=== PATIENT | female | born 1955 | race Caucasian/White ===

== ENCOUNTER 2020-04-14 10:05 | Outpatient (CLI) | payer OTHER, SELFPAY ==
--- NOTE | ~2020-04-14 | NM_ITS ---
EXAMINATION: NM bone scan whole body DATE: 04/14/2020 14:25 INDICATION: Elevated alkaline phosphatase level TECHNIQUE: 19 mCi Tc-99m HDP was administered intravenously. Delayed whole-body scintigrams were obt ained. COMPARISON: There are no relevant imaging studies at our institution. FINDINGS: Scattered likely degenerative joint centered uptake with typical distribution seen at the cervical sp ine, bilateral elbows and at multiple joints in the bilateral hands, feet and ankles. Tiny focus of l ikely enthesopathic uptake at the right patella. No other atypical foci of abnormal bone uptake to zavaleta ggest metastatic disease. IMPRESSION: 1. No evident osseous metastatic disease. Reviewed, dictated and finalized at location A.
== END 2020-04-14 10:06 | disposition home or self-care (01) ==
PROVIDERS: PCP Family Medicine; Visit Provider Family Medicine
DX: R74.8 Abnormal levels of other serum enzymes (principal)
CPT/HCPCS: 78306; A9561

== ENCOUNTER 2022-09-06 07:26 | Outpatient (CLI) | payer OTHER, SELFPAY | END 2022-09-06 07:27 | disposition home or self-care (01) | LOC: CHSLAB 07:28 | PROVIDERS: PCP Family Medicine; Visit Provider Family Medicine | DX: R19.7 Diarrhea, unspecified (principal) | CPT/HCPCS: 87045; 87177; 87209; 87324; 87427 ==

== ENCOUNTER 2022-12-04 16:23 | Emergency (ER) | payer OTHER, SELFPAY ==
[2022-12-04] VITALS (15 sets, daily range): BP systolic 130–166; BP diastolic 82–95; PULSE 70–89; RESP 11–28; TEMP 36.3–36.6; O2SAT 95–100
--- NOTE | ~2022-12-04 | CT_ITS ---
EXAMINATION: CT brain wo con DATE: 12/04/2022 16:41 INDICATION: Acute left arm numbness. TECHNIQUE: Computed tomography (CT) of the head was performed without intravenous contrast. The mA wa s adjusted according to patient size. Iterative reconstruction technique was employed. The dose-lengt h product was 681.00 mGy-cm. COMPARISON: None FINDINGS: There are scattered areas of low attenuation in the cerebral white matter. There is no intr acranial hemorrhage, acute infarction, or abnormal intracranial mass lesion. The ventricles are efrain l in size. There is mucosal thickening in the paranasal sinuses. The orbits are normal. The mastoid a ir cells are normal. IMPRESSION: 1. Mild nonspecific cerebral white matter disease, which likely represents chronic small vessel ische jean disease. Reviewed, dictated and finalized at location A. IMPRESSION: 1. Mild nonspecific cerebral white matter disease, which likely represents children's lunchroom supervisor nate small vessel ischemic disease.
--- NOTE | ~2022-12-04 | XR_ITS ---
EXAMINATION: XR chest 1V portable INDICATION: Left arm numbness TECHNIQUE: Portable AP chest at 1716 hours COMPARISON: 06/03/2019 FINDINGS: The lungs are free of acute opacities. No pleural effusion or pneumothorax. There is a larg e hiatal hernia. The heart size is normal. Surgical clips in the right upper quadrant are likely from prior cholecystectomy. IMPRESSION: 1. Large hiatal hernia. Reviewed, dictated and finalized at location F. IMPRESSION: 1. Large hiatal hernia.
--- NOTE | ~2022-12-04 | CT_ITS ---
EXAMINATION: CTA chest PE protocol DATE: 12/04/2022 18:44 INDICATION: Left arm numbness and nausea TECHNIQUE: Computed tomography angiography (CTA) of the chest was performed with 100 mL Omnipaque-350 intravenous contrast timed to evaluate the pulmonary arteries. Coronal maximum intensity projection 3D-reconstructions were created by the technologist. The dose-length product (DLP) was 519.74 mGy-cm. Automated exposure control and iterative reconstruction technique were employed. COMPARISON: 05/15/2007 FINDINGS: The pulmonary arteries are well-opacified. No pulmonary embolism is identified. Respiratory motion artifact limits evaluation for pulmonary emboli in the lung bases. There is a small sliding h iatal hernia. No pathologically enlarged thoracic lymph nodes are identified. The heart size is efrain l. There is mild dependent atelectasis. No pleural effusion or pneumothorax. The gallbladder is surgi danay absent. There is moderate thoracic spondylosis. IMPRESSION: 1. No pulmonary embolism or acute cardiopulmonary abnormality identified. Reviewed, dictated and finalized at location F.
--- NOTE | 2022-12-04 16:26 | ED.NEUROSD ---
HPI - Neuro Symptoms/Deficit General Chief Complaint: Extremity Injury, Upper Stated Complaint: left arm weakness and numbness Time Seen by Provider: 12/04/22 16:26 Source: patient Mode of arrival: EMS Limitations: no limitations History of Present Illness HPI Narrative: 67-year-old female, smoker with a history of hypertension, status post back surgery, anxiety/depression, Negative stress test 3-4 years ago, was brought in by EMS with -- increased anxiety over the past few days -- numbness over the left arm starting in the shoulder and extending to the elbow. No other focal neuro deficits. her symptoms started at 2:00 p.m.. blood sugar was noted to be 94. NIH stroke scale score 0 -- headache -- diaphoresis Onset (ago): hour(s) ( 4 hours ago) Last Observed Normal: 14:00 Timing confirmed by: family member History of same: No Severity: mild Quality: weak Relieving factors: none Exacerbating factors: none Context: gradual onset On Anticoagulants: No Associated symptoms: diaphoresis and headaches Treatments Prior to Arrival: none Related Data Home Medications Medication Instructions Recorded Confirmed atenolol 50 mg tablet 50 mg PO DAILY 12/04/22 12/04/22 levothyroxine 50 mcg tablet 50 mcg PO DAILY 12/04/22 12/04/22 lumateperone 10.5 mg capsule 10.5 mg PO QHS 12/04/22 12/04/22 (Caplyta) pitavastatin calcium 4 mg tablet 4 mg PO DAILY 12/04/22 12/04/22 (Livalo) Allergies Allergy/AdvReac Type Severity Reaction Status Date / Time hydrocodone Allergy Unknown nightmares Verified 12/04/22 16:49 simvastatin Allergy Unknown muscle Verified 12/04/22 16:49 ache, nausea venlafaxine Allergy Unknown irritable Verified 12/04/22 16:49 vilazodone [Viibryd] Allergy Unknown palpitation Verified 12/04/22 16:49 s Review of Systems Review of Systems: All systems reviewed & are unremarkable except as noted in HPI and below Constitutional: Constitutional: Reports as per HPI and Reports no additional constitutional complaints Eyes: Eyes: Reports as per HPI and Reports no additional eye complaints ENT: Reports system reviewed and no additional complaints, except as documented and Reports as per HPI Cardiovascular: Cardiovascular: Reports as per HPI and Reports no additional cardiovascular complaints Respiratory: Respiratory: Reports as per HPI, Reports no additional respiratory complaints and Reports dyspnea Gastrointestinal: Gastrointestinal: Reports as per HPI and Reports no additional gastrointestinal complaints Genitourinary: Genitourinary: Reports no additional female genitourinary complaints and Reports as per HPI Musculoskeletal: Musculoskeletal: Reports no additional musculoskeletal complaints and Reports as per HPI Integumentary/Breasts: Skin/Breast: Reports system reviewed and no additional complaints, except as docu and Reports as per HPI Neurologic: Reports system reviewed and no additional complaints, except as documented, Reports as per HPI, Reports headache(s) and Reports numbness Psychiatric: Psychiatric: Reports no additional psychiatric complaints, Reports as per HPI, Reports anxiety and Reports depression Endocrine: Endocrine: Reports no additional endocrine complaints and Reports excessive sweating Hematologic/Lymphatic: Hematologic/Lymphatic: Reports no additional hematologic/lymphatic complaints and Reports as per HPI Allergic/Immunologic: Allergic/Immunologic: Reports no additional allergic/immunologic complaints and Reports as per HPI PMFSH Past Medical History Medical History (Updated 12/04/22 @ 19:24 by Konrad Dietrich MD) Anxiety and depression Dyslipidemia Hypertension Surgical History Surgical History (Updated 12/04/22 @ 16:55 by Konrad Dietrich MD) Previous back surgery Social History Social History (Updated 12/04/22 @ 16:56 by Konrad Dietrich MD) Social History: smoker Alcohol intake: never Exam Narrative: hypertensive with a blood pre
--- NOTE | 2022-12-04 16:31 | ECG_ITS ---
Measurements Intervals [place] Rate: 68 P: 66 ID: [id number] QRS: 35 QRSD: 94 T: 59 QT: 395 QTc: 422 Interpretive Statements SINUS RHYTHM WITH SINUS ARRHYTHMIA NORMAL ECG NO PREVIOUS ECG AVAILABLE FOR COMPARISON Electronically Signed On 12-04-2022 21:08:37 CDT by Juni Pardo D.O.
[2022-12-04 16:35] LABS: Glucose Point of Care 94 mg/dl (65-105)
[2022-12-04] MEDS: MIDAZOLAM HCL (*CRX) 2 MG/2 ML VIAL 1 MG IV PUSH (16:50)
[2022-12-04] MEDS: ASPIRIN 81 MG CHEWABLE TABLET 324 MG PO (16:51)
[2022-12-04 17:00] LABS: Basophils Absolute Auto 0.04 K/mm3 (0.00-0.10); Basophils Percent Auto 0.5 % (0.0-1.0); Eosinophils Percent Auto 1.3 % (1.0-6.0); Hematocrit 37.8 % (35.0-42.0); Hemoglobin 12.8 g/dL (11.7-13.8); Immature Granulocyte Absolute 0.02 K/mm3 (0.00-0.00); Immature Granulocyte Percent A 0.3 % (0.0-0.0); Lymphocytes Absolute Auto 1.55 K/mm3 (1.10-4.50); Lymphocytes Percent Auto 20.7 % (18.0-42.0); Mean Corpuscular HGB Conc 33.9 g/dL (32.0-36.0); Mean Corpuscular Hemoglobin 29.7 pg (27.0-31.0); Mean Corpuscular Volume 87.7 fL (78.0-102.0); Mean Platelet Volume 11.4 fl (9.2-11.8); Monocytes Absolute Auto 0.39 K/mm3 (0.10-0.90); Monocytes Percent Auto 5.2 % (2.0-11.0); Neutrophils Absolute Auto 5.4 K/mm3 (1.7-7.2); Platelet Count Result 252 K/mm3 (150-420); Red Blood Count 4.31 M/mm3 (4.20-5.40); White Blood Count 7.5 K/mm3 (4.8-10.8)
[2022-12-04 17:13] LABS: D Dimer 0.84 mg/L (0.19-0.50); INR 0.9; Partial Thromboplastin Time 27.6 SEC (23.90-30.70); Prothrombin Time 10.4 Seconds (9.50-12.10)
[2022-12-04 17:24] LABS: Alanine Aminotransferase 41 U/L (14-59); Albumin Level 3.4 g/dL (3.4-5.0); Alkaline Phosphatase 122 U/L (46-116); Anion Gap 12 mmol/L (8-16); Aspartate Amino Transferase 22 U/L (15-37); Bilirubin,Total 0.2 mg/dL (0.00-1.00); Blood Urea Nitrogen 27 mg/dL (7-18); Calcium 9.3 mg/dL (8.5-10.1); Carbon Dioxide 27 mmol/L (21-32); Chloride 105 mmol/L (98-108); Estimated CRCL calculation 67 ml/min; Estimated Glomerular Filt Rate > 60; Glucose 100 mg/dL (70-99); NT Pro B Type Natriuretic Pept 187 pg/mL (0-125); Osmolality Calculated 303 mOsm/kg (285-295); Sodium 144 mmol/L (136-145); Troponin I 6.9 ng/L (0.00-60.4)
[2022-12-04] MEDS: LACTATED RINGERS 500 ML 999 ML IV CONT (18:42)
== END 2022-12-04 19:39 | disposition home or self-care (01) ==
PROVIDERS: Emergency Provider Internal Medicine Critical Care Medicine; PCP Family Medicine
DX: F41.0 Panic disorder [episodic paroxysmal anxiety] (principal); J44.9 Chronic obstructive pulmonary disease, unspecified; R06.00 Dyspnea, unspecified; I10 Essential (primary) hypertension; E78.5 Hyperlipidemia, unspecified; F41.8 Other specified anxiety disorders
CPT/HCPCS: 36415; 70450; 71045; 71275; 80053; 82948; 83880; 84484; 85025; 85380; 85610; 85730; 93005; 96361; 96374; 99284; A9270; J2250; J7120; Q9967

== ENCOUNTER 2023-08-15 19:17 | Emergency (ER) | payer OTHER, SELFPAY ==
--- NOTE | ~2023-08-15 | CT_ITS ---
EXAMINATION: CTA chest PE protocol DATE: 08/15/2023 20:55 INDICATION: Left chest pain. TECHNIQUE: Computed tomography angiography (CTA) of the chest was performed with 100 mL Omnipaque-350 intravenous contrast timed to evaluate the pulmonary arteries. Coronal maximum intensity projection 3D-reconstructions were created by the technologist. Automated exposure control and iterative reconst ruction technique were employed. The dose-length product was 285.45 mGy-cm. COMPARISON: Chest CT 12/04/2022 FINDINGS: The lungs demonstrate mild atelectasis. No pleural effusion. The heart size is normal. No p ericardial effusion. There is no pulmonary embolus. There are changes of cholecystectomy. There is se carlitos thoracic and cervical spondylosis. IMPRESSION: 1. No pulmonary embolus. Reviewed, dictated and finalized at location E. LIEUTENANT IMPRESSION: 1. No pulmonary embolus.
--- NOTE | ~2023-08-15 | XR_ITS ---
EXAMINATION: XR chest 1V portable DATE: 08/15/2023 19:40 INDICATION: Chest pain. TECHNIQUE: A single frontal view of the chest was obtained. COMPARISON: Chest single view 12/04/2022 FINDINGS: There is no pneumonia, pleural effusion, or pneumothorax. The heart size is normal. IMPRESSION: 1. No acute cardiopulmonary disease. Reviewed, dictated and finalized at location E. ORATION GEOLOGIST
--- NOTE | 2023-08-15 19:20 | ECG_ITS ---
Measurements Intervals [place] Rate: 72 P: 56 FL: 188 QRS: 7 QRSD: 84 T: 36 QT: 399 QTc: 437 Interpretive Statements SINUS RHYTHM VOLTAGE CRITERIA FOR LVH, CONSIDER NORMAL VARIANT Electronically Signed On 08-16-2023 13:05:11 [employer] OPERATOR HELPER by Landen Riley M.D.
[2023-08-15 19:35] VITALS: BP 137/82; PULSE 72; RESP 20; TEMP 37; O2SAT 97
--- NOTE | 2023-08-15 19:35 | ED.CHESTPAIN ---
HPI - Chest Pain General Chief Complaint: Chest Pain <Aurelio Bowens MD - Last Filed: 08/15/23 19:44> Stated Complaint: shoulder blade pain <Aurelio Bowens MD - Last Filed: 08/15/23 19:44> Time Seen by Provider: 08/15/23 19:20 <Aurelio Bowens MD - Last Filed: 08/15/23 19:44> Source: patient <Aurelio Bowens MD - Last Filed: 08/15/23 19:44> Mode of arrival: ambulatory <Aurelio Bowens MD - Last Filed: 08/15/23 19:44> Limitations: no limitations <Aurelio Bowens MD - Last Filed: 08/15/23 19:44> History of Present Illness HPI narrative: patient is a 68-year-old female with a significant past medical history that presents today with chest pain and shoulder blade pain. Patient states that she has shortness of breath and chest pain for the last 4 days. She states that it got worse today and she does have a history of panic attacks. She also has a psych history as well. She states the pain she feels all with the place but does have chest pain and pain between shoulder blades. EMS brought her here and she was given aspirin Zofran. She denies any fevers or other systemic symptoms. She is 89 questions well because she states she is in so much pain. There is no known cardiac history. <Aurelio Bowens MD - Last Filed: 08/15/23 19:44> MD complaint: chest pain <Aurelio Bowens MD - Last Filed: 08/15/23 19:44> Pertinent past history: coronary artery disease <Aurelio Bowens MD - Last Filed: 08/15/23 19:44> Onset (ago): day(s) <Aurelio Bowens MD - Last Filed: 08/15/23 19:44> Timing of current episode: constant <Aurelio Bowens MD - Last Filed: 08/15/23 19:44> Prior episodes: Yes <Aurelio Bowens MD - Last Filed: 08/15/23 19:44> Onset: during rest and during exertion <Aurelio Bowens MD - Last Filed: 08/15/23 19:44> Pain location: substernal <Aurelio Bowens MD - Last Filed: 08/15/23 19:44> Pain radiation: back <Aurelio Bowens MD - Last Filed: 08/15/23 19:44> Severity: moderate <Aurelio Bowens MD - Last Filed: 08/15/23 19:44> Pain scale (0-10): 7 <Aurelio Bowens MD - Last Filed: 08/15/23 19:44> Quality: tightness <Aurelio Bowens MD - Last Filed: 08/15/23 19:44> Relieving factors: nothing <Aurelio Bowens MD - Last Filed: 08/15/23 19:44> Exacerbating factors: nothing <Aurelio Bowens MD - Last Filed: 08/15/23 19:44> Associated symptoms: diaphoresis and dyspnea <Aurelio Bowens MD - Last Filed: 08/15/23 19:44> Treatment prior to arrival: aspirin and nitroglycerin <Aurelio Bowens MD - Last Filed: 08/15/23 19:44> Risk Factors Coronary artery disease risk factors: none <Aurelio Bowens MD - Last Filed: 08/15/23 19:44> Thoracic aortic dissection risk factors: none <Aurelio Bowens MD - Last Filed: 08/15/23 19:44> Related Data Home Medications: Home Medications Medication Instructions Recorded Confirmed atenolol 50 mg tablet 50 mg PO DAILY 12/04/22 12/04/22 levothyroxine 50 mcg tablet 50 mcg PO DAILY 12/04/22 12/04/22 lumateperone 10.5 mg capsule 10.5 mg PO QHS 12/04/22 12/04/22 (Caplyta) pitavastatin calcium 4 mg tablet 4 mg PO DAILY 12/04/22 12/04/22 (Livalo) <Aurelio Bowens MD - Last Filed: 08/15/23 19:44> Allergies/Adverse Reactions: Allergies Allergy/AdvReac Type Severity Reaction Status Date / Time hydrocodone Allergy Unknown nightmares Verified 08/15/23 19:48 simvastatin Allergy Unknown muscle Verified 08/15/23 19:48 ache, nausea venlafaxine Allergy Unknown irritable Verified 08/15/23 19:48 vilazodone [Viibryd] Allergy Unknown palpitation Verified 08/15/23 19:48 s <Aurelio Bowens MD - Last Filed: 08/15/23 19:44> Review of Systems Review of Systems: All systems reviewed & are unremarkable except as noted in HPI and below <Aurelio Bowens MD - Last Filed: 08/15/23 19:44> Constitutional: Constituti
[2023-08-15] MEDS: MORPHINE SULFATE (*CRX) 2 MG/ML INJ IV PUSH (19:36)
[2023-08-15] MEDS: LORazepam INJ (*CRX) 2 MG/ML VIAL 1 MG IV PUSH (19:37)
[2023-08-15 19:45] VITALS: O2SAT 95
[2023-08-15 19:45] LABS: Basophils Absolute Auto 0.03 K/mm3 (0.00-0.10); Basophils Percent Auto 0.5 % (0.0-1.0); Eosinophils Absolute Auto 0.11 K/mm3 (0.02-0.50); Eosinophils Percent Auto 1.7 % (1.0-6.0); Hematocrit 40.7 % (35.0-42.0); Hemoglobin 13.4 g/dL (11.7-13.8); Immature Granulocyte Percent A 1.5 % (0.0-0.0); Lymphocytes Absolute Auto 2.73 K/mm3 (1.10-4.50); Lymphocytes Percent Auto 41.4 % (18.0-42.0); Mean Corpuscular HGB Conc 32.9 g/dL (32.0-36.0); Mean Corpuscular Hemoglobin 29.1 pg (27.0-31.0); Mean Corpuscular Volume 88.5 fL (78.0-102.0); Mean Platelet Volume 11.3 fl (9.2-11.8); Monocytes Absolute Auto 0.38 K/mm3 (0.10-0.90); Monocytes Percent Auto 5.8 % (2.0-11.0); Neutrophils Absolute Auto 3.2 K/mm3 (1.7-7.2); Neutrophils Percent Auto 49.1 % (50.0-70.0); Platelet Count Result 281 K/mm3 (150-420); Red Cell Distribution Width 12.4 % (11.6-14.4); White Blood Count 6.6 K/mm3 (4.8-10.8)
[2023-08-15 20:00] LABS: Prothrombin Time 10.6 Seconds (9.50-12.10)
[2023-08-15 20:02] LABS: D Dimer 0.99 mg/L (0.19-0.50)
[2023-08-15 20:09] LABS: Alanine Aminotransferase 40 U/L (14-59); Albumin Level 3.6 g/dL (3.4-5.0); Alkaline Phosphatase 117 U/L (46-116); Anion Gap 10 mmol/L (8-16); Aspartate Amino Transferase 18 U/L (15-37); Bilirubin,Total 0.3 mg/dL (0.00-1.00); Blood Urea Nitrogen 26 mg/dL (7-18); Calcium 9.1 mg/dL (8.5-10.1); Carbon Dioxide 23 mmol/L (21-32); Chloride 102 mmol/L (98-108); Estimated CRCL calculation 55 ml/min; Estimated Glomerular Filt Rate > 60; Glucose 174 mg/dL (70-99); Lipase 23 U/L (16-77); NT Pro B Type Natriuretic Pept 53 pg/mL (0-125); Osmolality Calculated 288 mOsm/kg (285-295); Sodium 135 mmol/L (136-145); Troponin I 4.2 ng/L (0.00-60.4)
[2023-08-15 21:30] VITALS: BP 134/70; PULSE 74; RESP 16; O2SAT 98
[2023-08-15 21:57] LABS: Troponin I 4.6 ng/L (0.00-60.4)
[2023-08-15] MEDS: POTASSIUM CHLORIDE 20 MEQ ER TABLET 40 MEQ PO (22:07)
[2023-08-15 22:27] VITALS: BP 140/65; PULSE 69; RESP 16; O2SAT 99
[2023-08-15 22:28] LABS: Appearance Urine Clear (Clear); Bilirubin Urine Negative (Negative); Blood Urine Negative (Negative); Color Urine Yellow (Yellow); Glucose Urine UA Negative (Negative); Ketones Urine Negative (Negative); Leukocyte Esterase Ur Negative LEU/UL (Negative); Nitrate Urine Negative (Negative); Protein Urine Negative (Negative); Specific Grav Ur 1.015 (1.010-1.020); Urobilinogen Urine 0.2 mg/dL (0.2-1.0); pH Urine 5.5 (5.0-8.0)
[2023-08-15 22:31] LABS: Add Urine Microscopic? NO
[2023-08-15 22:35] LABS: Amphetamine Screen Urine Positive (Negative); Barbiturate Screen Urine Negative (Negative); Benzodiazepines Screen Urine Negative (Negative); Cannabinoid Screen Urine Positive (Negative); Cocaine Screen Urine Negative (Negative); Methadone Screen Urine Negative (Negative); Opiate Screen Urine Positive (Negative); Phencyclidine Screen Urine Negative (Negative)
[2023-08-15 23:19] VITALS: BP 151/86; PULSE 66; RESP 16; O2SAT 97
== END 2023-08-15 23:27 | disposition home or self-care (01) ==
PROVIDERS: Family Medicine; Emergency Provider Emergency Medicine; PCP Family Medicine
DX: R09.1 Pleurisy (principal); R07.9 Chest pain, unspecified; R06.00 Dyspnea, unspecified; I25.10 Atherosclerotic heart disease of native coronary artery without angina pectoris; E78.5 Hyperlipidemia, unspecified; I10 Essential (primary) hypertension; Z79.899 Other long term (current) drug therapy
CPT/HCPCS: 36415; 71045; 71275; 80053; 80307; 81003; 83690; 83880; 84484; 85025; 85380; 85610; 85730; 93005; 96374; 96375; 99284; A9270; J2060; J2270; Q9967

== ENCOUNTER 2025-02-02 12:17 | Outpatient (CLI) | payer OTHER, SELFPAY ==
--- NOTE | ~2025-02-02 | MM_ITS ---
EXAMINATION: MM screening lance BI w deisy HISTORY: Screening TECHNIQUE: Craniocaudal and mediolateral oblique 3-D tomosynthesis images were obtained and synthetic 2-D images were generated. CAD analysis was submitted and interpreted. COMPARISON: No prior mammogram is available for comparison at this institution. BREAST PARENCHYMAL COMPOSITION: Not dense: There are scattered areas of fibroglandular density. FINDINGS: There is no evidence of suspicious mass, calcification, or architectural distortion to sugg est malignancy in either breast. There has been no suspicious interval change. IMPRESSION: 1. No mammographic evidence of malignancy. 2. Recommend routine screening mammography in one year. BI-RADS Category 1: Negative Reviewed, dictated and finalized at location A.
--- OUTSIDE RECORDS SUMMARY | 2025-02-02 12:21 | XMS_ITS | Clinical Summary ---
Author Organization [facility] Address [address] [place] [address] Care Team Providers Care Cheese Processor Name Role Phone Darian Kenny MD Unavailable [phone] Karen Cope MD Unavailable [phone] NazMarisabel MD Unavailable [phone] Roberto Armijo MD Primary Care Provider Allergies No known active allergies Medications levothyroxine (SYNTHROID, LEVOTHROID) 50 mcg tabletIndications: hypothyroidism Take 1 tablet (50 mcg total) by mouth dog licenser before breakfast Active atenolol (TENORMIN) 50 mg tabletIndications: hypertension Take 1 tablet (50 mg total) by mouth every morning Active pitavastatin calcium (LIVALO) 2 mg tabletIndications: hyperlipidemia Take 1 tablet (2 mg total) by mouth every morning Active lisdexamfetamine (VYVANSE) 70 mg capsuleIndications :Attention-Deficit Hyperactivity Disorder Take 1 capsule (70 mg total) by mouth every morning Active sertraline (ZOLOFT) 50 mg tablet 2 Active Caplyta 10.5 mg capsule 4 Active polyethylene glycol (GoLYTELY) 236-22.74-6.74 -5.86 gram solution TAKE HALF OF THE PREP SOLUTION AT 6:00 PM THE EVENING BEFORE COLON TAKE THE OTHER HALF 4 HOURS BEFORE ARRIVAL OF COLON AT 2:00 AM. 4000 mL 5 Active lisinopriL (PRINIVIL,ZESTRIL) 10 mg tablet Take 1 tablet (10 mg total) by mouth daily 5 Active omeprazole (PriLOSEC) 40 mg capsule Take 1 capsule (40 mg total) by mouth 2 (two) times a day before breakfast and dinner 60 capsule 2 5 Active Active Problems Problem Noted Date Diagnosed Date Personal history of colon cancer 09/17/2023 Chronic diarrhea 08/28/2022 Overview (08/28/2022): Added automatically from request for surgery [id number] Family history of pancreatic cancer 08/21/2020 Overview (08/21/2020): Added automatically from request for surgery [id number] Personal history of colon cancer, stage I 2019 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 Overview (09/24/2019): Added automatically from request for surgery [id number] Malignant neoplasm screen 08/10/2019 Overview (08/10/2019): Added automatically from request for surgery [id number] 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 02/10/2014 Surgical History Surgery Date Site/Laterality Comments HYSTERECTOMY 09/08/1998 - 09/07/1999 BACK SURGERY 09/08/2013 - 09/07/2014 lumbar COLONOSCOPY 09/17/2019 COLON POLYPECTOMY 09/08/2015 - 09/07/2016 CHOLECYSTECTOMY RIGHT COLECTOMY 11/30/2019 Robotic UPPER GASTROINTESTINAL ENDOSCOPY UPPER ENDOSCOPIC ULTRASOUND W/ FNA Medical History Medical History Date Comments Hypertension Hypothyroid Depression ADD (attention deficit disorder) Hyperlipidemia Valadez syndrome Colon polyp Colon cancer (HCC) Anxiety Chronic diarrhea Family History Medical History Relation Name Comments Colon cancer Daughter Parkinsonism Father Pancreatic cancer Mother Colon cancer Sister 1 Four sisters Pancreatic cancer Sister 1 Two sister s Pancreatic cancer Sister 2 Non-Hodgkin's Lymphoma Sister 3 Anesthesia problems Neg Hx Relation Name Status Comments Daughter Father Mother Sister 1 Pancreatic canc er in 2 sisters Sister 2 Alive Sister 3 Alive Social History Tobacco Use Types Packs/Day Years Used Date Smoking Tobacco: Every Day Cigarettes 1.5 35.4 Started: 09/17/1989 Smokeless Tobacco: Never Tobacco Cessation:Ready to Q uit: Not Asked; Counseling Given: Not Answered Alcohol Use Standard Drinks/Week Comments No 0 (1 standard drink = 0.6 oz pur e alcohol) AUDIT-C Answer Date Recorded Q1: How often do you have a drink containing alc ohol? Never 10/29/2024 Average Number of Drinks Not on file 025 Frequency of Binge Drinking Not on file 10/10 Personal Safety Answer Date Recorded Have you ever been in or are you currently in a harmful physical or emotional relationship or is someone making you feel afraid or unsafe? Denies 10/29/2024 Comments No Sex and Gender Information Value Date Recorded Sex Assigned at Not on file Legal Sex Female 1:18 AM REFRIGERATOR REPAIRMAN Gender Identity Not on file Sexual Orientation Not on file Obstetrics History Last Filed Vital Signs Vital Sign Reading Time Taken Comments Blood Pressure 107/65 10/29/2024 9:22 AM REFRIGERATOR REPAIRMAN Pulse 57 10/29/2024 9:22 AM REFRIGERATOR REPAIRMAN Temperature 36.1 C (97 F) 10/29/2024 8:52 AM REFRIGERATOR REPAIRMAN Respiratory Rate 17 10/29/2024 9:22 AM REFRIGERATOR REPAIRMAN Oxygen Saturation 100% 10/29/2024 9:22 AM REFRIGERATOR REPAIRMAN Inhaled Oxygen Concentration - - Weight 55.3 kg (122 lb) 10/29/2024 7:33 AM REFRIGERATOR REPAIRMAN Height 157.5 cm (5' 2) 10/29/2024 7:33 AM REFRIGERATOR REPAIRMAN Body Mass Index 22.31 10/29/2024 7:33 AM REFRIGERATOR REPAIRMAN Plan of Treatment Health Maintenance Due Date Last Done Comments Depression Screening 1955 Hepatitis C Screening 1955 Osteoporosis Screening-Bone Density Scan 1955 DTaP/Tdap/Td Vaccine (1 - Tdap) 1967 Hepatitis B Screening 1974 Lung Cancer Screening 2006 Zoster Vaccine (1 of 2) 2006 Well Visit 65+ 2021 Breast Cancer Screening-Mammogram 09/26/2021 021 Covid-19 Vaccine (2023- 5 season) 2024 05/31/2022, 12/27/2021, 07/11/2021, Additional history exists Influenza Vaccine (Season Ended) 2025 06/10/2022, 05/31/2022, 06/15/2021, Additional history exists Fall Risk Assessment 10/29/2025 10/29/2024 Colon Cancer Screening-Colonoscopy 10/29/2034 10/29/2024, 10/24/2023, 09/26/2022, Additional history exists Pneumococcal vaccine 65+ Completed 07/13/2022 Colon Cancer Screening-CT Colonography Discontinued 10/29/2024, 10/24/2023, 09/26/2022, Additional history exists Colon Cancer Screening-DNA Stool Discontinued 10/29/2024, 10/24/2023, 09/26/2022, Additional history exists Colon Cancer Screening-FIT Discontinued 10/29, 10/24/2023, 09/26/2022, Additional history exists Colon Cancer Screening-Sigmoidoscopy Discontinued 10/29/2024, 10/24/2023, 09/26/2022, Additional history exists Procedures Procedure Name Priority Date/Time Associated Diagnosis Comments COLONOSCOPY 10/29/2024 8:30 AM REFRIGERATOR REPAIRMAN SCREENING MAMMOGRAM BILATERAL W CARMEN Schedule Routine, Read Routine (OP Routine) 09/26/2020 4:17 PM REFRIGERATOR REPAIRMAN Encounter for screening mammogram for malignant neoplasm of breast from Last 3 Months or Most Recently Relevant to Health Maintenance Results * Colonoscopy (10/29/2024 8:30 AM REFRIGERATOR REPAIRMAN) Anatomical Region Laterality Modality Other Narrative Procedure Note Karen Cope MD - 10/29/2024 8:30 AM C[facility] Patient Name: Jude Tobias Procedure Date: 10/29/2024 8:30 AM Date of : 1955 Admit Type: Outpatient Age: 69 Gender: Female Attending MD: Karen Cope M.D. Room: [facility] ENDOSCOPY ROOM 9 Note Status: Finalized Procedure: Colonoscopy Indications: High risk colon cancer surveillance: Personalhistory of colon cancer, Personal history of hereditary nonpolyposis colorectal cancer (Valadez Syndrome),Last colonoscopy: October 2023 Referring MD: Roberto Armijo M.D. Providers: Karen Cope M.D. Medicines: Monitored Anesthesia Care Complications: No immediate complications. Estimated Blood Loss: Estimated blood loss: none. Procedure: Pre-Anesthesia Assessment: - Immediately prior to administration ofmedications, the patient was re-assessed for adequacy to receive sedatives. - The risks and benefits of the procedure and the sedation options and risks were discussed with the patient. All questions were answered and informed consent was obtained. The benefits, risks and alternatives of theprocedure and sedation were discussed and informed consentwas obtained. All questions were answered. Please referto the signed informed consent document in the medical record. The scope was passed under direct vision.The [facility] [id number] endoscope was introducedthrough the anus and advanced to the ileocolonicanastomosis. The colonoscopy was performed without difficulty.The patient tolerated the procedure well. The qualityof the bowel preparation was evaluated using the BBPS ([place] Bowel Preparation Scale) with scores of: Transverse Colon = 3 (entire mucosa seen well withno residual staining, small fragments of stool oropaque liquid) and Left Colon = 3 (entire mucosa seen well with no residual staining, small fragments of stoolor opaque liquid). The total BBPS score equals 6. The quality of the bowel preparation was excellent. The bowel preparation used was polyethylene glycol(PEG) via split dose instruction. The quality of thebowel preparation was excellent. Findings: There was evidence of a prior end-to-side ileo-colonic anastomosis at the hepatic flexure. This was patent and was characterized by healthy appearing mucosa. The anastomosis was traversed. The exam was otherwise without abnormality. Impression: - Patent end-to-side ileo-colonic anastomosis, characterized by healthy appearing mucosa. - The examination was otherwise normal. - No specimens collected. Recommendation: - Repeat colonoscopy in 1 year for surveillance. Attending Participation: I personally performed the entire procedure. Electronically signed by Karen Cope MD Karen Cope M.D. 10/29/2024 8:52:46 AM . Number of Addenda: 0 Note Initiated On: 10/29/2024 8:30 AM us Karen Cope MD ENDOSCOPY PROCEDURES Final Res ult * Screening Mammogram Bilateral W Carmen (09/26/2020 4:17 PM REFRIGERATOR REPAIRMAN) Anatomical Region Laterality Modality Breast Bilateral Mammography Narrative 10/04/2020 2:40 PM REFRIGERATOR REPAIRMAN Mammogram Technique: Bilateral Digital Breast Tomosynthesis, Bilateral C-view 2D Screening mammogram. Views obtained: bilateral craniocaudal and bilateral mediolateral oblique. Computer Aided Detection was performed. Mammogram Findings: The present examination has been compared to prior imaging studies performed at [facility] on 09/04/2009, 09/10/2011 and 06/30/2014. The breasts are almost entirely fatty. There is no suspicious abnormality in either breast. Impression: There is no mammographic evidence of malignancy. Annual screening mammography is recommended. OVERALL FINAL ASSESSMENT: BI-RADS CATEGORY 1: Negative. Procedure Note Stefanie Michelle MD - 10/04/2020 Mammogram Technique: Bilateral Digital Breast Tomosynthesis, Bilateral C-view 2D Screening mammogram. Views obtained: bilateral craniocaudal and bilateral mediolateral oblique. Computer Aided Detection was performed. Mammogram Findings: The present examination has been compared to prior imaging studies performed at [facility] on 09/04/2009, 09/10/2011 and 06/30/2014. The breasts are almost entirely fatty. There is no suspicious abnormality in either breast. Impression: There is no mammographic evidence of malignancy. Annual screening mammography is recommended. OVERALL FINAL ASSESSMENT: BI-RADS CATEGORY 1: Negative. us Self Screening Mammogram IMG MAMMO PROCEDURES Fi nal Result from Last 3 Months or Most Recently Relevant to Health Maintenance Insurance [facility] CHOICE PLUS MEDICARE [facility] CHOICE PLUS [place] [id number] MEDICARE [place] [id number] MEDICARE Advance Directives For more information, please contact: [phone] * Full Code (Latest Code Status on File) Date Activated Date Inactivated Comments 10/29/2024 7:26 AM 10/29/2024 1:34 PM * Full Code Date Activated Date Inactivated Comments 10/24/2023 7:37 AM 10/24/2023 1:28 PM * Full Code Date Activated Date Inactivated Comments 09/26/2022 10:32 AM 09/26/2022 4:29 PM * Full Code Date Activated Date Inactivated Comments 11/22/2021 7:49 AM 11/22/2021 2:15 PM * Full Code Date Activated Date Inactivated Comments 09/14/2020 8:59 AM 09/14/2020 3:12 PM Care Teams Cheese Processor Relationship Specialty Start Date End Date Roberto Armijo MD [address] [place] [id number] PCP - General Family Medicine 10/19/24 Darian Kenny MD Surgeon Colon and Rectal Surgery 10/12/19 Karen Cope MD Consulting Physician Gastroenterology 10/12/19 Marisabel Childs MD Surgeon Breast Surgery 06/21/20
--- OUTSIDE RECORDS SUMMARY | 2025-02-02 12:21 | XMS_ITS | Referral Summary ---
Author Organization [facility] Address [address] [place] [address] Care Team Providers Care Webmethods Architect Name Role Phone Darian Kenny MD Unavailable [phone] Karen Cope MD Unavailable [phone] NazMarisabel MD Unavailable [phone] Roberto Armijo MD Primary Care Provider Allergies No known active allergies Medications levothyroxine (SYNTHROID, LEVOTHROID) 50 mcg tabletIndications: hypothyroidism Take 1 tablet (50 mcg total) by mouth primary care pediatrician before breakfast Active atenolol (TENORMIN) 50 mg [...] (08/28/2022): Added automatically from request for surgery [id number] Family history of pancreatic cancer 08/21/2020 Overview (08/21/2020): Added automatically from request for surgery [id number] Personal history of colon cancer, stage I 2019 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 Overview (09/24/2019): Added automatically from request for surgery [id number] Malignant neoplasm screen 08/10/2019 Overview (08/10/2019): Added automatically from request for surgery [id number] 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 02/10/2014 Social History Tobacco Use Types Packs/Day Years [...] on file Legal Sex Female 1:18 AM FRETTED INSTRUMENT INSPECTOR Gender Identity Not on file Sexual Orientation Not on file Last Filed Vital Signs Vital Sign Reading Time Taken Comments Blood Pressure 107/65 10/29/2024 9:22 AM FRETTED INSTRUMENT INSPECTOR Pulse 57 10/29/2024 9:22 AM FRETTED INSTRUMENT INSPECTOR Temperature 36.1 C (97 F) 10/29/2024 8:52 AM FRETTED INSTRUMENT INSPECTOR Respiratory Rate 17 10/29/2024 9:22 AM FRETTED INSTRUMENT INSPECTOR Oxygen Saturation 100% 10/29/2024 9:22 AM FRETTED INSTRUMENT INSPECTOR Inhaled Oxygen Concentration - - Weight 55.3 kg (122 lb) 10/29/2024 7:33 AM FRETTED INSTRUMENT INSPECTOR Height 157.5 cm (5' 2) 10/29/2024 7:33 AM FRETTED INSTRUMENT INSPECTOR Body Mass Index 22.31 10/29/2024 7:33 AM FRETTED INSTRUMENT INSPECTOR Plan of Treatment Not on file Procedures Procedure Name Priority Date/Time Associated Diagnosis Comments COLONOSCOPY 10/29/2024 8:30 AM FRETTED INSTRUMENT INSPECTOR SCREENING MAMMOGRAM BILATERAL W GILBERTO Schedule Routine, Read Routine (OP Routine) 09/26/2020 4:17 PM FRETTED INSTRUMENT INSPECTOR Encounter for screening mammogram for malignant neoplasm of breast from Last 3 Months or Most Recently Relevant to Health Maintenance Results * Colonoscopy (10/29/2024 8:30 AM FRETTED INSTRUMENT INSPECTOR) Anatomical Region Laterality Modality Other Narrative Procedure Note Karen Coep MD - 10/29/2024 8:30 AM CST [facility] Patient Name: Jude Tobias Procedure Date: 10/29/2024 8:30 AM Date of : 1955 Admit Type: Outpatient Age: 69 Gender: Female Attending MD: Karen Cope M.D. Room: [facility] ENDOSCOPY ROOM 9 Note Status: Finalized Procedure: [...] The scope was passed under direct vision.The [facility] [id number] endoscope was introducedthrough the anus and advanced to the ileocolonicanastomosis. The colonoscopy was performed without difficulty.The patient tolerated the procedure well. The qualityof the bowel preparation was evaluated using the BBPS ([place] Bowel Preparation Scale) with scores of: Transverse [...] Res ult * Screening Mammogram Bilateral W Gilberto (09/26/2020 4:17 PM FRETTED INSTRUMENT INSPECTOR) Anatomical Region Laterality Modality Breast Bilateral Mammography Narrative 10/04/2020 2:40 PM FRETTED INSTRUMENT INSPECTOR Mammogram Technique: Bilateral Digital Breast Tomosynthesis, Bilateral C-view 2D Screening mammogram. Views obtained: bilateral craniocaudal and bilateral mediolateral oblique. Computer Aided Detection was performed. Mammogram Findings: The present examination has been compared to prior imaging studies performed at [facility] on 09/04/2009, 09/10/2011 and 06/30/2014. The breasts [...] compared to prior imaging studies performed at [facility] on 09/04/2009, 09/10/2011 and 06/30/2014. The breasts are almost entirely fatty. There is no suspicious abnormality in either breast. Impression: There is no mammographic evidence of malignancy. Annual screening mammography is recommended. OVERALL FINAL ASSESSMENT: BI-RADS CATEGORY 1: Negative. us Self Screening Mammogram IMG MAMMO PROCEDURES Fi nal Result from Last 3 Months or Most Recently Relevant to Health Maintenance Insurance [facility] CHOICE PLUS [facility] HMO/PPO Address: [address] [address] [place] [address] MEDICARE [facility] CHOICE PLUS MEDICARE [facility] HMO/PPO Address: [address] [place] [address] MEDICARE Advance Directives For more information, please contact: [phone] * Full Code (Latest Code Status on [...] 8:59 AM 09/14/2020 3:12 PM Care Teams Webmethods Architect Relationship Specialty Start Date End Date Roberto Armijo MD [address] [place] [id number] PCP - General Family Medicine 10/19/24 Darian Kenny MD Surgeon Colon and Rectal Surgery 10/12/19 Karen Cope MD Consulting Physician Gastroenterology 10/12/19 Marisabel Childs MD Surgeon Breast Surgery 06/21/20
--- OUTSIDE RECORDS SUMMARY | 2025-02-02 12:21 | XMS_ITS | Clinical Summary ---
Author Organization [facility] Address [address] [place] [address] Phone Care Team Providers Care Medical Insurance Biller Name Role Phone Luisa Lopes MD Primary Care Provider [phone] Allergies No known active allergies Medications atenolol (TENORMIN) 25 mg tablet Take 25 mg by mouth daily at bedtime. Active niacin-simvastat in SR 24 HR (SIMCOR) 500-20 mg Tab, Multiphasic Release 24 HR Take 1 Tab by mouth daily at bedtime. Active est estrogens-methyl test (ESTRATEST) 1.25-2.5 mg tablet Take 1 Tab by mouth daily. Active sertraline (ZOLOFT) 100 mg tablet Take 150 mg by mouth daily at bedtime. Active levothyroxine 50 mcg Oral tablet Take 50 mcg by mouth daily. Active dextroamphetamin e-amphetamine (ADDERALL) 20 mg tablet Take 20 mg by mouth daily. Active oxyCODONE (ROXICODONE) 5 mg tablet Take 1-2 Tabs by mouth every 4 hours as needed for Pain. 90 Tab 0 4 Active diazepam (VALIUM) 10 mg tablet Take 0.5 Tabs by mouth 4 times daily as needed for Spasm or Discomfort. 90 Tab 1 4 Active docusate sodium (COLACE) 100 mg capsule Take 1 Cap by mouth 2 times daily. Take while on narcotics 60 Cap 0 4 Active Active Problems Problem Noted Date Diagnosed Date Spondylolisthesis of lumbar region 10/29/2013 Social History Tobacco Use Types Packs/Day Years Used Date Smoking Tobacco: Former Cigarettes 1.5 20 0 10/05/1993 - 10/05/2013 Alcohol Use Standard Drinks/Week Comments No 0 (1 standard drink = 0.6 oz pur e alcohol) Comments Unknown Sex and Gender Information Value Date Recorded Sex Assigned at Not on file Legal Sex Female 4:15 AM BIOMEDICAL INSTRUMENT TECHNICIAN Gender Identity Not on file Sexual Orientation Not on file Last Filed Vital Signs Vital Sign Reading Time Taken Comments Blood Pressure 104/59 10/31/2013 4:27 AM BIOMEDICAL INSTRUMENT TECHNICIAN Pulse 90 10/31/2013 4:27 AM BIOMEDICAL INSTRUMENT TECHNICIAN Temperature 37.2 C (98.9 F) 10/31/2013 4:27 AM BIOMEDICAL INSTRUMENT TECHNICIAN Respiratory Rate 18 10/31/2013 4:27 AM BIOMEDICAL INSTRUMENT TECHNICIAN Oxygen Saturation 97% 10/31/2013 4:27 AM BIOMEDICAL INSTRUMENT TECHNICIAN Inhaled Oxygen Concentration - - Weight 73.2 kg (161 lb 6.4 oz) 10/28/2013 9:50 A M BIOMEDICAL INSTRUMENT TECHNICIAN Height 157.5 cm (5' 2) 10/18/2013 11:35 AM BIOMEDICAL INSTRUMENT TECHNICIAN Body Mass Index 29.52 10/18/2013 11:35 AM BIOMEDICAL INSTRUMENT TECHNICIAN Plan of Treatment Health Maintenance Due Date Last Done Comments DTAP/TDAP/TD VACCINES (1 - Tdap) 1975 BREAST CANCER SCREENING 1996 COLORECTAL SCREENING 2001 Colorectal Cancer Screening 2001 FIT-DNA Q 3 years 2001 FIT/FOBT Q 1 year 2001 Flex Sig/CT Colonography Q 5 years 2001 PNEUMOCOCCAL VACCINE 50+ YEARS (1 of 1 - PCV) 04/12/20 ZOSTER VACCINE (1 of 2) 2006 OSTEOPOROSIS SCREENING 2021 INFLUENZA VACCINE (#1) 2024 RSV VACCINE (60+ or ) (1 - 1-dose 75+ series) 2031 Medical Devices Implanted Type Area Podiatry Teacher Device Identifier Shelf Expiration Date Model / Serial / Lot 6.0 Rods Implanted:Qty: 2 on 10/28/2013 by Lea Luis MD at [facility] Tariq N/A: Spine Lumbar [employer]EDRICK- SPINE [id number] / / [id number] Description:Load#28, Sterili zed 10-26-2013 Tiera 3 Screws 6.5x45 Implanted:Qty: 1 on 10/28/2013 by Lea Luis MD at [facility] Screw N/A: Spine Lumbar [employer]RIKC- SPINE [id number] / / [id number] Description:XIA3 screw box#2 Load#38, Sterilized 10-26-2013 Sealant Floseal W/ Adptr 10ml [id number] - [id number] Implanted:Qty: 1 on 10/28/2013 by Lea Luis MD at [facility] Sealant N/A: Spine Lumbar SNYDER- BIOSCIENCE 02/05/2015 [id number] / / [id number] Tlif Cage 9mm Cage Implanted:Qty: 1 on 10/28/2013 by Lea Luis MD at [facility] Spacer N/A: Spine Lumbar [employer]ICK[employer] SPINE [id number] / / [id number] Description:Load#38, Sterili zed 10-26-2013 Tiera 3 Screws 6.0x40 Implanted:Qty: 2 on 10/28/2013 at [facility] N/A: Spine Lumbar [employer]ICK- SPINE / / [id number] Description:Load#38, Sterili zed 10-26-2013 Manufacturor #[id number] Noel Implanted:Qty: 4 on 10/28/2013 by Lea Luis MD at [facility] N/A: Spine Lumbar [employer]ICK[employer] SPINE [id number] / / [id number] Description:XIA3 Instrument Box#2 Load#28, Sterilized 10-26-2013 Explanted Type Area Podiatry Teacher Device Identifier Shelf Expiration Date Model / Serial / Lot Xia3 Screws 6.0x40 Explanted:Qty: 1 on 10/28/2013 at [facility] Screw N/A: Spine Lumbar [employer]ICK[employer] SPINE [id number] / / Description:Load #38, Steril ized 10-26-2013 Insurance Advance Directives For more information, please contact: [phone] * Full Code (Latest Code Status on File) Date Activated Date Inactivated Comments 10/28/2013 7:54 PM 10/31/2013 4:06 PM * Full Code Date Activated Date Inactivated Comments 10/28/2013 11:11 AM 10/28/2013 7:54 PM * Full Code Date Activated Date Inactivated Comments 10/28/2013 9:39 AM 10/28/2013 11:11 AM Care Teams Medical Insurance Biller Relationship Specialty Start Date End Date Luisa Lopes MD PCP - General Family Practice 10/05/13
--- OUTSIDE RECORDS SUMMARY | 2025-02-02 12:21 | XMS_ITS ---
Author Organization [facility] Address [address] [place] [address] Care Team Providers Care Craps Dealer Name Role Phone Darian Kenny MD Unavailable [phone] Karen Cope MD Unavailable [phone] NazMarisabel MD Unavailable Roberto Armijo MD Primary Care Provider Active Problems Problem Noted Date Diagnosed Date Personal history of colon cancer 09/17/2023 Chronic diarrhea 08/28/2022 Overview (08/28/2022): Added automatically from request for surgery [id number] Family history of pancreatic cancer 08/21/2020 Overview (08/21/2020): Added automatically from request for surgery [id number] Personal history of colon cancer, stage I 2019 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 Past Treatment and Therapy Plans No past plan information found. Lifetime Dose Tracking * Chemical Lifetime Dose Automatic Entry Manual Entr y DLP 2,175 mGycm 2,175 mGycm 0 mGycm Treatment Summaries Colon cancer (HCC)* Images from the original note were not included. [address] [address] This Survivorship Care Plan is a cancer treatment summary and follow-up plan and is provided to youto keep with your health care records and to share with your primary care provider or any of your doctors and nurses. This summary is a brief record of major aspects of your cancer treatment not a detailed or comprehensive record of your care. You should review this with your cancer provider. Treatment Summary and Survivorship Care Plan for Colorectal Cancer General Information Patient name Cierra Bolden (home) [phone] (work) Date of 1955 Health Care Providers (Including Names, Institutions) Provider Name: Contact Information: Primary Care Physician Mathew Coronel MD [phone] Surgeon Darian Kenny MD [phone] Radiation Oncologist Medical Oncologist Food Service Cashier Treatment Summary Cancer Diagnosis Information Diagnosis Colon cancer (CMS/HCC) Diagnosis date 12/17/2019 Staging information Cancer Staging Stage I Predisposing Conditions Valadez Syndrome Family History of Colon, Rectal or Anal Cancer Colon, Rectal, or Anal Cancer- related family historyincludes Colon cancer in her daughter and sister. Received Genetic counseling Yes Genetic Testing Yes, Results: Valadez Syndrome Pre-op Colonoscopy Yes Completion to cecum Yes Treatment Completed Surgery Surgery date 11/30/2019 Surgical procedure / location / findings Laparoscopic Robotic Assisted Extended Right Colectomy Radiation No Permanent [place] No Persistent symptoms or side effects that have continued after finishing treatment: None Treatment Ongoing: No Follow-up Care Plan Your follow-up care plan is design to inform you and primary care providers regarding the recommended and required follow-up, cancer screening and routine health maintenance that is needed to maintain optimal health. Schedule of Clinical Visits Coordinating Provider When/How often Colon Surgeon: Darian Kenny MD (Patients may alternate with Medical oncology and Surgeon if both are [facility]) History and Physical every 3 months for 2 years then, every 6 months for following 3 years Mathew Coronel After 5 years of treatment completion - yearly exam Cancer Surveillance or other Recommended Tests Coordinating Provider Test How Often Colon Surgeon: Darian Kenny MD Colonoscopy 1 year after surgery Colon Surgeon: Darian Kenny MD CEA blood test Every 3 months for 2 years then every 6 months for following 3 years. Colon Surgeon: Darian Kenny MD Chest/Abdominal/pelvic CT (high risk patients) Yearly up to 5 years Possible late- and long-term effects that someone with this type of cancer and treatment may experience: Bowel problems (urgency, incontinence, change in consistency) Numbness/tingling Fatigue Memory/concentration difficulty Patients receiving radiation therapy for rectal cancer may also experience: Pelvic insufficiency fractures Urinary problems - urinary incontinence Sexual dysfunction - erectile dysfunction, ejaculatory problems, menopause, vaginal dryness, painful intercourse Please continue to see your primary care provider for all general health care recommended for a patient your age, including cancer screening tests, except for colon cancer. Any symptoms should be brought to the attention of your provider: Anything that represents a brand new symptom; Anything that represents a persistent symptom; Anything you are worried about that might be related to the cancer coming back. Cancer survivors may experience issues with the areas listed below. If you have any concerns in these or other areas, please speak with your doctors or nurses to find out how you can get help with them. Anxiety and depression Emotional and mental health Fatigue Fertility Financial advice or assistance Insurance Memory or concentration loss Parenting Physical functioning School/work Sexual functioning Stopping smoking Weight changes Other A number of lifestyle/behaviors can affect your ongoing health, including the risk for the cancer coming back or developing another cancer. Discuss these recommendations with your doctor or nurse: Colon and Rectal cancer require lifelong surveillance. It is essential that you follow your doctors??? recommendations for follow up appointments and tests. Eat a healthy diet: focus on lean meats and proteins, more fruits, vegetables and whole grains and low in sugars and fats. Limit red meat and avoid processed meat. Maintain a healthy weight; avoid being overweight. Aim for a normal body mass index (BMI) of 18.5-24.9. Help learning to eat healthier, call the production supervisor trainee at: [facility]/[place] for [facility] . Have an active lifestyle, strive for 30 minutes of moderate exercise 5 times a week and strength orresistance training at least twice a week. Use broad-spectrum (UVA+UVB) sunscreen with SPF 30 or greater, is water resistant, limit time spentin the sun (10 am-4pm), wear hat, wear UV protective clothing, wear sunglasses. Never use a tanningbed. Skin that was irradiated may be more sensitive over your lifetime. Do not smoke or chew tobacco; participate in a smoking cessation program. Limit alcohol intake, 1 drink per day for a woman and 2 drinks per day for a man. Family members may be at risk for colorectal cancer, please advise your family members to discuss with their primary care physician their risk and screening needs. Family members may be at risk for colorectal cancer, please advise your family members to discuss with their primary care physician their risk and screening needs. Discuss your need for daily aspirin and other healthy life style measures with your primary care physician. Resources you may be interested in: [facility] [place] [facility] [email or web address].[email or web address]/ [facility] & Cancer Information Center 1st floor of [facility] . Computer access, educational material, counseling services (FREE) United Ostomy Association: the place for ostomy resources, advocacy, and support. www.ostomy.org The ostomy nurse at [facility] can be reached at [phone] Online Resources: www.cancer.net; http://www.cdc.gov/cancer/survivorship; http://www.cancercare.org/tagged/post-treatment_survivorship; http://www.cancer.gov/about-cancer/coping/survivorship Springboard Beyond Cancer: https://survivorship.cancer.gov/ an online tool for cancer survivors andcaregivers created by the [place] [employer] Society and the National Cancer [place]. It provides: Information on dealing with side effects from cancer and treatment Caregivers with support and resources Practical advice about talking to friends and family about cancer Questions to ask their health care team Help understanding their rights in the workplace
== END 2025-02-02 12:18 | disposition home or self-care (01) ==
LOC: CHSIMG 12:19
PROVIDERS: PCP Family Medicine; Visit Provider Family Medicine
DX: Z12.31 Encounter for screening mammogram for malignant neoplasm of breast (principal)
CPT/HCPCS: 77063; 77067

== ENCOUNTER 2025-06-09 16:11 | Outpatient (CLI) | payer OTHER, SELFPAY ==
--- NOTE | ~2025-06-09 | MR_ITS ---
EXAMINATION: MR lumbar spine wo con DATE: 06/09/2025 17:07 INDICATION: Radicular syndrome of right leg. TECHNIQUE: Magnetic resonance imaging (MRI) of the lumbar spine was performed without intravenous contrast. COMPARISON: Lumbar spine MRI 09/25/2013 FINDINGS: There is 6 mm anterolisthesis of L4 and L5. There are changes of anterior and posterior fusion procedures at L4-L5 with interbody device and pedicle screws. Vertebral body heights are normal. There is mildly decreased disc height at L1-L2, severely decreased disc height at L2-L3, and mildly d ecreased disc height at L3-L4. The distal spinal cord signal intensity is normal. The conus medullaris is at T12-L1. The following disc levels are specifically discussed: L1-L2: The disc is bulging. There is moderate bilateral facet joint osteoarthritis. There is mild bilateral neural foraminal stenosis. There is mild central canal stenosis. L2-L3: The disc is bulging. There is severe bilateral facet joint osteoarthritis. There is hypertrophy of the ligamentum flavum. There is mild bilateral neural foraminal stenosis. There is mild central canal stenosis. L3-L4: The disc is bulging and has an annular fissure. There is severe bilateral facet joint osteoarthritis. There is hypertrophy of the ligamentum flavum. There is moderate right and mild left neural foraminal stenosis. There is moderate central canal stenosis. L4-L5: There is no facet joint hypertrophy. There is no neural foraminal stenosis. There is no central canal stenosis. L5-S1: The disc is bulging. There is severe bilateral facet joint osteoarthritis. There is mild bilateral neural foraminal stenosis. There is mild central canal stenosis. IMPRESSION: 1. Severe lumbar spondylosis, worsened from 09/25/2013. 2. Anterior and posterior fusion procedures at L4-L5. Reviewed, dictated and finalized at location E.
== END 2025-06-09 16:12 | disposition home or self-care (01) ==
LOC: CHSIMG 16:14
PROVIDERS: PCP Family Medicine; Visit Provider Family Medicine
DX: M54.10 Radiculopathy, site unspecified (principal); M43.06 Spondylolysis, lumbar region; Z98.1 Arthrodesis status
CPT/HCPCS: 72148

== ENCOUNTER 2025-08-29 10:13 | Outpatient (CLI) | payer OTHER, SELFPAY ==
--- NOTE | ~2025-08-29 | XR_ITS ---
EXAMINATION: XR chest 2V 08/29/2025 10:44 INDICATION: Preop PROCEDURE: PA and lateral views of the chest COMPARISON: Comparison to multiple prior studies sequentially, with oldest reviewed study dated 10/06/2016. FINDINGS: The lungs are clear. The cardiomediastinal silhouette is within normal limits. There are no pleural effusions. There is no pneumothorax suspected. There are cholecystectomy clips. IMPRESSION: 1: NO ACUTE CARDIOPULMONARY DISEASE. Reviewed, dictated and finalized at location O. [employer]
[2025-08-29 10:33] LABS: Hematocrit 37.6 % (35.0-42.0); Hemoglobin 12.2 g/dL (11.7-13.8); Immature Granulocyte Percent A 0.4 % (0.0-0.0); Lymphocytes Absolute Auto 1.76 K/mm3 (1.10-4.50); Mean Corpuscular HGB Conc 32.4 g/dL (32-36); Mean Corpuscular Hemoglobin 29.2 pg (27.0-31.0); Mean Corpuscular Volume 90.0 fL (78.0-102.0); Nucleated Red Blood Cells Absolute Auto 0.00 K/mm3 (0.00-0.00); Nucleated Red Blood Cells Perc 0.0 % (0-0.0); Platelet Count Result 249 K/mm3 (150-420); Red Blood Count 4.18 M/mm3 (4.20-5.40); White Blood Count 5.0 K/mm3 (4.8-10.8)
--- NOTE | 2025-08-29 10:35 | ECG_ITS ---
Test Date: 2025-08-29 11:05:55 Measurements Intervals [place] Rate: 62 P: 77 AR: 186 QRS: 69 QRSD: 90 T: 62 QT: 388 QTc: 395 Interpretive Statements SINUS RHYTHM POSSIBLE RIGHT VENTRICULAR CONDUCTION DELAY BORDERLINE ECG No previous ECG available for comparison Electronically Signed On 08-29-2025 12:03:22 CITY CONTROLLER by Juni Pardo D.O.
[2025-08-29 10:42] LABS: Add Urine Microscopic? NO; Appearance Urine Clear (Clear); Glucose Urine UA Negative (Negative); Leukocyte Esterase Ur Negative (Negative); Nitrate Urine Negative (Negative); Specific Grav Ur 1.020 (1.010-1.020)
[2025-08-29 10:54] LABS: Hemoglobin A1C 5.0 % (<5.7)
[2025-08-29 11:00] LABS: Alanine Aminotransferase 41 U/L (6-35); Albumin Level 4.0 g/dL (3.5-5.1); Alkaline Phosphatase 104 U/L (38-126); Anion Gap 11 mmol/L (4-12); Aspartate Amino Transferase 40 U/L (14-36); Bilirubin,Total 0.2 mg/dL (0.2-1.3); Blood Urea Nitrogen 29 mg/dL (7-17); Calcium 9.1 mg/dL (8.4-10.2); Carbon Dioxide 22 mmol/L (22-30); Chloride 107 mmol/L (98-107); Estimated Glomerular Filt Rate > 60; Glucose 98 mg/dL (65-110); Osmolality Calculated 295 mOsm/kg (285-295); Potassium 3.9 mmol/L (3.4-5.0); Sodium 140 mmol/L (137-145); Total Protein 6.3 g/dL (6.3-8.2)
--- OUTSIDE RECORDS SUMMARY | 2025-08-29 11:51 | XMS_ITS | Clinical Summary ---
Author Organization [facility] Address [address] [place] [address] Phone Care Team Providers Care Correctional Program Officer Name Role Phone Luisa Lopes MD Primary Care Provider Allergies No known active allergies Medications atenolol [...] on file Legal Sex Female 4:15 AM PNEUMATIC PRESS HAND Gender Identity Not on file Sexual Orientation Not on file Last Filed Vital Signs Vital Sign Reading Time Taken Comments Blood Pressure 104/59 10/31/2013 4:27 AM PNEUMATIC PRESS HAND Pulse 90 10/31/2013 4:27 AM PNEUMATIC PRESS HAND Temperature 37.2 C (98.9 F) 10/31/2013 4:27 AM PNEUMATIC PRESS HAND Respiratory Rate 18 10/31/2013 4:27 AM PNEUMATIC PRESS HAND Oxygen Saturation 97% 10/31/2013 4:27 AM PNEUMATIC PRESS HAND Inhaled Oxygen Concentration - - Weight 73.2 kg (161 lb 6.4 oz) 10/28/2013 9:50 A M PNEUMATIC PRESS HAND Height 157.5 cm (5' 2) 10/18/2013 11:35 AM PNEUMATIC PRESS HAND Body Mass Index 29.52 10/18/2013 11:35 AM PNEUMATIC PRESS HAND Plan of Treatment Health Maintenance Due Date Last Done Comments DTAP/TDAP/TD VACCINES (1 - Tdap) 1975 BREAST CANCER SCREENING 1996 COLORECTAL SCREENING 2001 Colorectal Cancer Screening 2001 FIT-DNA Q 3 years 2001 FIT/FOBT Q 1 year 2001 Flex Sig/CT Colonography Q 5 years 2001 PNEUMOCOCCAL VACCINE 50+ YEARS (1 of 1 - PCV) 04/12/20 06 ZOSTER VACCINE (1 of 2) 2006 OSTEOPOROSIS SCREENING 2021 INFLUENZA VACCINE (#1) 2025 RSV VACCINE (60+ or ) (1 - 1-dose 75+ series) 2031 Medical Devices Implanted Type Area Diver Helper Device Identifier Shelf Expiration Date Model / Serial / Lot 6.0 Rods Implanted:Qty: 2 on 10/28/2013 by Lea Luis MD at [facility] Tariq N/A: Spine Lumbar FREDRICK- SPINE [id number] / / [id number] Description:Load#28, Sterili zed 10-26-2013 Tiera 3 Screws 6.5x45 Implanted:Qty: 1 on 10/28/2013 by Lea Luis MD at [facility] Screw N/A: Spine Lumbar FREDRICK- SPINE [id number] / / [id number] Description:XIA3 screw box#2 Load#38, Sterilized 10-26-2013 Sealant Floseal W/ Adptr 10ml [id number] - [id number] Implanted:Qty: 1 on 10/28/2013 by Lea Luis MD at [facility] Sealant N/A: Spine Lumbar SNYDER- BIOSCIENCE 02/05/2015 [id number] / / [id number] Tlif Cage 9mm Cage Implanted:Qty: 1 on 10/28/2013 by Lea Luis MD at [facility] Spacer N/A: Spine Lumbar FREDRICK- SPINE [id number] / / [id number] Description:Load#38, Sterili zed 10-26-2013 Tiera 3 Screws 6.0x40 Implanted:Qty: 2 on 10/28/2013 at [facility] N/A: Spine Lumbar FREDRICK- SPINE / / [id number] Description:Load#38, Sterili zed 10-26-2013 Manufacturor #[id number] Noel Implanted:Qty: 4 on 10/28/2013 by Lea Luis MD at [facility] N/A: Spine Lumbar FREDRICK- SPINE [id number] / / [id number] Description:XIA3 Instrument Box#2 Load#28, Sterilized 10-26-2013 Explanted Type Area Diver Helper Device Identifier Shelf Expiration Date Model / Serial / Lot Xia3 Screws 6.0x40 Explanted:Qty: 1 on 10/28/2013 at [facility] Screw N/A: Spine Lumbar FREDRICK- SPINE [id number] / / Description:Load #38, Steril ized 10-26-2013 Insurance [facility] OPTIONS PPO [id number] Advance Directives For more information, please contact: [phone] * Full Code (Latest Code Status on File) Date Activated Date Inactivated Comments 10/28/2013 7:54 PM 10/31/2013 4:06 PM * Full Code Date Activated Date Inactivated Comments 10/28/2013 11:11 AM 10/28/2013 7:54 PM * Full Code Date Activated Date Inactivated Comments 10/28/2013 9:39 AM 10/28/2013 11:11 AM Care Teams Correctional Program Officer Relationship Specialty Start Date End Date Luisa Lopes MD PCP - General Family Practice 10/05/13
--- OUTSIDE RECORDS SUMMARY | 2025-08-29 11:51 | XMS_ITS ---
Author Organization [facility] Address [address] [place] [address] Care Team Providers Care Montessori Program Director Name Role Phone Darian Kenny MD Unavailable [phone] Karen Cope MD Unavailable [phone] NazMarisabel MD Unavailable Roberto Armijo MD Primary Care Provider Active Problems Problem Noted Date Diagnosed Date Personal history of colon cancer 09/17/2023 Chronic diarrhea 08/28/2022 Overview (08/28/2022): Added automatically from request for surgery [id number] Family history of pancreatic cancer 08/21/2020 Overview (08/21/2020): Added automatically from request for surgery [id number] Personal history of colon cancer, stage I 2019 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 Past Treatment and Therapy Plans No past plan information found. Lifetime Dose Tracking * Chemical Lifetime Dose Automatic Entry Manual Entr y DLP 2,175 mGycm 2,175 mGycm 0 mGycm Treatment Summaries Colon cancer (HCC)* Images from the original note were not included. [address] [address] This Survivorship Care Plan is a cancer [...] General Information Patient name Cierra Bolden (home) [phone] (work) Date of 1955 Health Care Providers (Including Names, Institutions) Provider Name: Contact Information: Primary Care Physician Mathew Coronel MD [phone] Surgeon Darian Kenny MD [phone] Radiation Oncologist Medical Oncologist Piecer Treatment Summary Cancer Diagnosis Information Diagnosis Colon [...] Medical oncology and Surgeon if both are [facility]) History and Physical every 3 [...] Help learning to eat healthier, call the mission analyst at: [facility] for [facility] . Have an active lifestyle, strive for [...] physician. Resources you may be interested in: [facility] [email or web address].[email or web address]/ [facility] & Cancer Information Center 1st floor of [facility] [phone]. Computer access, educational material, counseling services (FREE) United Ostomy Association: the place for ostomy resources, advocacy, and support. www.ostomy.org The ostomy nurse at [facility] can be reached at [phone] Online Resources: www.cancer.net; http://www.cdc.gov/cancer/survivorship; http://www.cancercare.org/tagged/post-treatment_survivorship; http://www.cancer.gov/about-cancer/coping/survivorship Springboard Beyond Cancer: https://survivorship.cancer.gov/ an online tool for cancer survivors andcaregivers created by the [place] Cancer Society and the National Cancer [place]. It provides: Information on dealing with side effects from cancer and treatment Caregivers with support and resources Practical advice about talking to friends and family about cancer Questions to ask their health care team Help understanding their rights in the workplace
--- OUTSIDE RECORDS SUMMARY | 2025-08-29 11:51 | XMS_ITS | Clinical Summary ---
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 Active atenolol (TENORMIN) 50 mg [...] (08/28/2022): Added automatically from request for surgery [id number] Family history of pancreatic cancer 08/21/2020 Overview (08/21/2020): Added automatically from request for surgery [id number] Personal history of colon cancer, stage I 2019 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 Overview (09/24/2019): Added automatically from request for surgery [id number] Malignant neoplasm screen 08/10/2019 Overview (08/10/2019): Added automatically from request for surgery [id number] 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 02/10/2014 Encounters Date Type Department Care Team Description 08/24/2025 Telephone [facility] Gastroenterology [address] [facility] [address] [place] [address] [place] [address] Elizabeth Eckert RMA from Last 3 Months Surgical History Surgery Date Site/Laterality Comments HYSTERECTOMY [...] Date Smoking Tobacco: Every Day Cigarettes 1.5 35.9 Started: 09/17/1989 Smokeless Tobacco: Never Tobacco Cessation:Ready [...] on file Legal Sex Female 1:18 AM [employer] Gender Identity Not on file Sexual Orientation Not on file Last Filed Vital Signs Vital Sign Reading Time Taken Comments Blood Pressure 107/65 10/29/2024 9:22 AM [employer] [facility] Pulse 57 10/29/2024 9:22 AM [employer] [facility] Temperature 36.1 C (97 F) 10/29/2024 8:52 AM [employer] [facility] Respiratory Rate 17 10/29/2024 9:22 AM [facility] Oxygen Saturation 100% 10/29/2024 9:22 AM [employer] [facility] Inhaled Oxygen Concentration - - Weight 55.3 kg (122 lb) 10/29/2024 7:33 AM [employer] Height 157.5 cm (5' 2) 10/29/2024 7:33 AM [employer] [place] Body Mass Index 22.31 10/29/2024 7:33 AM [employer] Plan of Treatment Health Maintenance Due Date Last Done Comments Depression Screening 1955 Hepatitis C Screening 1955 Osteoporosis Screening-Bone Density Scan 1955 DTaP/Tdap/Td Vaccine (1 - Tdap) 1967 Hepatitis B Screening 1974 Lung Cancer Screening 2006 Zoster Vaccine (1 of 2) 2006 Well Visit 65+ 2021 Breast Cancer Screening-Mammogram 09/26/2021 021 Covid-19 Vaccine (2024-2 6 season) 2025 05/31/2022, 12/27/2021, 07/11/2021, Additional history exists Influenza Vaccine (#1) 2025 , 05/31/2022, 06/15/2021, Additional history exists Fall Risk Assessment 10/29/2025 10/29/2024 Colon Cancer Screening-Colonoscopy 10/29/2034 10/29/2024, 10/24/2023, 09/26/2022, Additional history exists Pneumococcal vaccine 65+ Completed 022, 05/21/2011, 08/05/2006 Colon Cancer Screening-CT Colonography Discontinued 10/29/2024, 10/24/2023, 09/26/2022, Additional history exists Colon Cancer Screening-DNA Stool Discontinued 10/29/2024, 10/24/2023, 09/26/2022, Additional history exists Colon Cancer Screening-FIT Discontinued 10/29, 10/24/2023, 09/26/2022, Additional history exists Colon Cancer Screening-Sigmoidoscopy Discontinued 10/29/2024, 10/24/2023, 09/26/2022, Additional history exists Procedures Procedure Name Priority Date/Time Associated Diagnosis Comments COLONOSCOPY 10/29/2024 8:30 AM [employer] SCREENING MAMMOGRAM BILATERAL W CARMEN Schedule Routine, Read Routine (OP Routine) 09/26/2020 4:17 PM [employer] [facility] Encounter for screening mammogram for malignant neoplasm of breast from Last 3 Months or Most Recently Relevant to Health Maintenance Results * Colonoscopy (10/29/2024 8:30 AM [employer] [facility]) Anatomical Region Laterality Modality Other Narrative Procedure Note Early, Karen Hopson MD - 10/29/2024 8:30 AM [facility] Patient Name: Jude Tobias Procedure Date: 10/29/2024 8:30 AM Date of : 1955 Admit Type: Outpatient Age: 69 Gender: Female Attending MD: Karen Cope M.D. Room: [facility] ENDOSCOPY ROOM 9 Note Status: Finalized [...] The scope was passed under direct vision.The [facility] [id number] endoscope was introducedthrough the anus and advanced to the ileocolonicanastomosis. The colonoscopy was performed without difficulty.The patient tolerated the procedure well. The qualityof the bowel preparation was evaluated using the BBPS ([place] Bowel Preparation Scale) with scores of: Transverse [...] Mammogram Bilateral W Carmen (09/26/2020 4:17 PM [employer]) Anatomical Region Laterality Modality Breast Bilateral Mammography Narrative 10/04/2020 2:40 PM [employer] [facility] Mammogram Technique: Bilateral Digital Breast Tomosynthesis, Bilateral C-view 2D Screening mammogram. Views obtained: bilateral craniocaudal and bilateral mediolateral oblique. Computer Aided Detection was performed. Mammogram Findings: The present examination has been compared to prior imaging studies performed at [facility] 09/04/2009, 09/10/2011 and 06/30/2014. The breasts [...] compared to prior imaging studies performed at [facility] on 09/04/2009, 09/10/2011 and 06/30/2014. The breasts are almost entirely fatty. There is no suspicious abnormality in either breast. Impression: There is no mammographic evidence of malignancy. Annual screening mammography is recommended. OVERALL FINAL ASSESSMENT: BI-RADS CATEGORY 1: Negative. us Self Screening Mammogram IMG MAMMO PROCEDURES Fi nal Result from Last 3 Months or Most Recently Relevant to Health Maintenance Insurance [facility]/PPO Address: [address] [address] [place] [address] MEDICARE [facility]O Address: [place] [address] MEDICARE [facility]/PPO Address: [facility] [id number] [place] [address] MEDICARE Advance Directives For more information, please contact: [phone] * Full Code (Latest Code Status on [...] 8:59 AM 09/14/2020 3:12 PM Care Teams Code Enforcement Inspector Relationship Specialty Start Date End Date Roberto Armijo MD [address] [place], [place] [id number] PCP - General Family Medicine 10/19/24 Darian Kenny MD Surgeon Colon and Rectal Surgery 10/12/19 Karen Cope MD Consulting Physician Gastroenterology 10/12/19 Marisabel Childs MD Surgeon Breast Surgery 06/21/20
--- OUTSIDE RECORDS SUMMARY | 2025-08-29 11:51 | XMS_ITS | Patient Health Record ---
Author Organization [facility] Address [address] [place] [address] Care Team Providers Care Education Site Manager Name Role Phone Tyrese Hahn Unavailable [phone] Reason For Referral No Information Medications Medication SIG (Take, Route, Frequency, Duration) Notes Start Date End Date Status LORazepam 1 MG Tablet Oral 12/18/2023 Active Levothyroxine Sodium 50 MCG Tablet Oral 12/18/2023 Active Sertraline HCl 25 MG Tablet Oral 12/18/2023 Active Sodium Fluoride 5000 Plus 1.1 % Dental Cream *Reorder from [employer] for eRx and Interaction Alerts* 12/18/2023 Active hydrOXYzine HCl 25 MG Tablet Oral 12/18/2023 Active Vyvanse 70 MG Capsule Oral 12/18/2023 Active Atenolol 50 MG Tablet Oral 12/18/2023 Active Sertraline HCl 50 MG Tablet Oral 12/18/2023 Active PITAVASTATIN CALCIUM 4 MG TABLET *Reorder from [employer] for eRx and Interaction Alerts* 12/18/2023 Active CAPLYTA 10.5 MG CAPSULE *Reorder from [employer] for eRx and Interaction Alerts* 12/18/2023 Active Social History Social History Additional Details Category Social Info Options Details Migrated Social History Migrated Social History Alcohol Intake: None 12/18/2023,Tobacco Years: Current every day smoker 12/18/2023,Smoking Status: 30 12/18/2023 Plan Of Treatment No Information Insurance Providers Payer Name Payer Address Payer Phone Subscriber Number Group Number Insured Name Patient Relationship to Insured Coverage Start Date Coverage End Date [facility] [address] [place] [phone] [id number] GABRIELE TOBIAS Spouse - patient is the spouse of the insured Medical (General) History Surgical History Surgery Date(Month/Year) Removal of gallbladder (14919) Any surgical history Other 10/14/2008 Hysterectomy (67683) 10/23/1998
[2025-08-29 12:26] LABS: MRSA (PCR) DETECTED (NOT DETECTE)
== END 2025-08-29 10:14 | disposition home or self-care (01) ==
LOC: CHSLAB 10:19
PROVIDERS: PCP Family Medicine; Visit Provider Family Medicine
DX: Z01.811 Encounter for preprocedural respiratory examination (principal)
CPT/HCPCS: 36415; 71046; 80053; 81003; 82306; 83036; 85025; 87086; 87641; 93005